=== PATIENT | male | born 1970 | race Hispanic/Latino ===

== ENCOUNTER 2019-06-05 05:58 | Emergency (ER) | payer BC ==
[2019-06-05 06:08] VITALS: BP 170/100
[2019-06-05] MEDS ORDERED: PENICILLIN G BENZATHINE 1.2 MILLION UNIT/2 ML INJ IM ONE (07:16)
--- NOTE | 2019-06-05 07:16 | Emergency Department Report ---
ED General Adult HPI - General Chief complaint: Dental/Oral Stated complaint: ABCESS TOOTH, BLURRY VISION, MIGRAINE Time Seen by Provider: 06/05/19 07:13 Source: patient Mode of arrival: Ambulatory Limitations: No Limitations - History of Present Illness Initial comments: 48 yo male with l face pain from "abscess." no fever or chills. mild swelling under left eye- not an abscess. ambulatory and non toxic. took nothing prior to arrival in ER - Related Data Previous Rx's Medication Instructions Recorded Last Taken Type Amoxicillin [Trimox CAP] 500 mg PO BID #20 capsule 06/05/19 Unknown Rx Ibuprofen [Motrin] 800 mg PO Q8HR PRN #30 tablet 06/05/19 Unknown Rx predniSONE [Deltasone] 20 mg PO DAILY #5 tablet 06/05/19 Unknown Rx Allergies Allergy/AdvReac Type Severity Reaction Status Date / Time No Known Allergies Allergy Verified 06/05/19 06:07 ED Review of Systems ROS: Stated complaint: ABCESS TOOTH, BLURRY VISION, MIGRAINE Other details as noted in HPI Comment: All other systems reviewed and negative ED Past Medical Hx - Past Medical History Previous Medical History?: No - Surgical History Past Surgical History?: Yes Additional Surgical History: left knee - Family History Family history: no significant - Social History Smoking Status: Current Every Day Smoker Substance Use Type: None - Medications Home Medications: Home Medications Medication Instructions Recorded Confirmed Last Taken Type Amoxicillin [Trimox CAP] 500 mg PO BID #20 capsule 06/05/19 Unknown Rx Ibuprofen [Motrin] 800 mg PO Q8HR PRN #30 tablet 06/05/19 Unknown Rx predniSONE [Deltasone] 20 mg PO DAILY #5 tablet 06/05/19 Unknown Rx ED Physical Exam - General Limitations: No Limitations General appearance: alert, in no apparent distress - Head Head exam: Present: atraumatic, normocephalic - Eye Eye exam: Present: normal appearance - ENT ENT exam: Present: mucous membranes moist - Neck Neck exam: Present: normal inspection - Respiratory Respiratory exam: Present: normal lung sounds bilaterally. Absent: respiratory distress - Cardiovascular Cardiovascular Exam: Present: regular rate, normal rhythm. Absent: systolic murmur, diastolic murmur, rubs, gallop - GI/Abdominal GI/Abdominal exam: Present: soft, normal bowel sounds - Rectal Rectal exam: Present: deferred - Extremities Exam Extremities exam: Present: normal inspection - Back Exam Back exam: Present: normal inspection - Neurological Exam Neurological exam: Present: alert, oriented X3 - Psychiatric Psychiatric exam: Present: normal affect, normal mood - Skin Skin exam: Present: warm, dry, intact, normal color, other (mild redness under l eye). Absent: rash ED Course Vital Signs 06/05/19 06:01 Temperature 98.0 F Pulse Rate 93 H Respiratory 18 Rate Blood Pressure 170/100 O2 Sat by Pulse 97 Oximetry ED Medical Decision Making - Medical Decision Making non ill no fever no abscess no cellulitis pos max sinus pain on palp ent normal ambulatory and non toxic no trauma to eye no stye on exam no dental pain taking po medicated in ER dc home with follow up with Dr Walters his pcp. No hx htn- most likely due to pain below l eye. He will monitor with pcp. no cp or sob. Vital Signs 06/05/19 06:01 Temperature 98.0 F Pulse Rate 93 H Respiratory 18 Rate Blood Pressure 170/100 O2 Sat by Pulse 97 Oximetry Critical care attestation.: If time is entered above; I have spent that time in minutes in the direct care of this critically ill patient, excluding procedure time. ED Disposition Clinical Impression: Sinusitis Disposition: DC-01 TO HOME OR SELFCARE Is pt being admited?: No Does the pt Need Aspirin: No Condition: Stable Additional Instructions: MEDICATIONS ORDERED TODAY FOLLOW UP WITH PCP IN 48 H FOR RECHECK DIET AND ACTIVITY TOLERATED DECREASE SALT IN DIET MONITOR BP WE DISCUSSED MOTRIN OR TYLENOL FOR PAIN- THE ANTIBIOTIC WILL MAKE PAIN GO AWAY Referrals: [facility] [Outside] - 3-5 Days Time of Disposition: 07:30
[2019-06-05] MEDS ORDERED: KETOROLAC 60 MG/2 ML INJ IM ONE (07:18)
== END 2019-06-05 08:15 | disposition home or self-care (01) ==
LOC: ED 05:58
DX: J32.9 Chronic sinusitis, unspecified (principal); K04.7 Periapical abscess without sinus; F17.200 Nicotine dependence, unspecified, uncomplicated; Z79.1 Long term (current) use of non-steroidal anti-inflammatories (NSAID)
CPT/HCPCS: 96372; 99282; J0561; J1885